=== PATIENT | male | born 1970 | race Caucasian/White ===

== ENCOUNTER 2017-06-30 09:02 | Emergency (ER) | payer BC ==
[~2017-06-30] VITALS: Ht 175.3 cm; Wt 85.0 kg
[~2017-06-30 09:02] MED LIST: ALL60 PO; OXYC-57 PO; TRIA3AER NAE
[2017-06-30 09:07] VITALS: BP 140/89; PULSE 99; TEMP 37.1; O2SAT 97; Ht 175.3 cm; Wt 85.0 kg
[2017-06-30] MEDS ORDERED: IBUPROFEN 600 MG TAB PO STA (09:19)
--- NOTE | 2017-06-30 09:21 | EMERGENCY ROOM VISIT NOTE ---
History Report prepared by Svetlana: Elmer Coello Under the Supervision of: Dr. Anderson Villatoro M.D. First contact with patient: 09:13 Chief Complaint: ANKLE PAIN Stated Complaint: SWOLLEN R ANKLE,AND ANKLE PAIN History of Present Illness The patient is a 46 year old male who presents to the Emergency Room with complaints of a sudden right ankle injury that occurred yesterday while [place]. He states that he turned the ankle when stepping in a hole, and he "felt a pop" when his ankle turned. The patient notes right ankle swelling, but he denies any new numbness. The patient states that he only has pain in the ankle, and denies any right leg pain. Source of History: patient Onset: Yesterday Position: ankle (right) Symptom Intensity: felt a pop Quality: other (turned ankle walking) Timing: other (sudden) Associated Symptoms: No numbness (no new) Note: Associated symptoms: Right ankle pain and swelling. Denies right leg pain. Review of Systems See HPI for pertinent positives & negatives. A total of 10 systems reviewed and were otherwise negative. Past Medical & Surgical Medical Problems: (1) HTN (hypertension) Surgical Problems: (1) History of back surgery Family History Diabetes mellitus Hypertension Kidney disease Social History Smoking Status: Never Smoker Smokeless Tobacco Use: No Drug Use: none Marital Status: Occupation Status: employed Current/Historical Medications Scheduled Fexofenadine Hcl (Ada *), 60 MG PO BID Oxycodone/Acetaminophen 5MG/325MG (Percocet 5MG/325MG), 1-2 TABLETS PO Q4HR PRN Triamcinolone Acet (Nasacort-Aq Nasal Inh), 2 SPRAYS ANA DAILY Scheduled PRN Oxycodone/Acetaminophen 5MG/325MG (Percocet 5MG/325MG), 1-2 TAB PO Q4H PRN for Pain Allergies Coded Allergies: Dog Dander (Verified Allergy, Mild, 09/29/08) Dust (Verified Allergy, Unknown, 07/04/05) Milk (Verified Allergy, Unknown, 07/04/05) Molds and Smuts (Verified Allergy, Unknown, 07/04/05) Starch (Verified Allergy, Unknown, DIETARY STARACH?, 06/17/09) Physical Exam Vital Signs Date Time Temp Pulse Resp B/P (MAP) Pulse Ox O2 Delivery O2 Flow Rate FiO2 2/18/18 09:07 37.1 99 18 140/89 97 Room Air Physical Exam GENERAL: Patient is a healthy-appearing well-nourished 46 year old male. HEAD: Normocephalic atraumatic EYES: Ocular movements intact pupils equal and react to light OROPHARYNX mucous membranes are moist no exudates present no erythema or edema present NECK: Supple no nuchal rigidity CHEST: Good equal expansion LUNGS: Clear and equal to auscultation CARDIAC: Normal S1 and S2 ABDOMEN: Soft nontender no guarding BACK: No CVA tenderness EXTREMITIES: Right ankle grossly swollen, neurovascularly intact. No pain at knee. NEURO: Patient is following commands and answering questions appropriately. Alert and oriented x3 Cranial Nerves 2-12 grossly intact Medical Decision & Procedures ER Provider Diagnostic Interpretation: X-ray results as stated below per interpretation by me and the radiologist: R ANKLE MIN 3 VIEWS ROUTINE CLINICAL HISTORY: Right ankle pain. COMPARISON: None FINDINGS: Alignment of the right ankle is anatomic. Talar dome is intact. There is no acute fracture. There is moderate lateral ankle soft tissue swelling. There is evidence for old syndesmotic injury. A 2.4 cm lucent lesion within the anterior calcaneus is noted with a narrow zone of transition. There is mild posterior calcaneal spurring. IMPRESSION: 1. No acute fracture or dislocation of the right ankle. 2. Moderate lateral ankle soft tissue swelling. 3. 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 Electronically signed by: Hesham Galdamez M.D. 06/30/2017 9:26 AM Dictated Date/Time: 06/30/2017 9:25 AM Medications Administered Medications (Trade) Dose Ordered Sig/Dinora Route Start Time Stop Time Status Last Admin Dose Admin Ibuprofen (Motrin Tab) 600 mg NOW STAT PO 06/30/17 09:19 06/30/17 09:21 DC 06/30/17 09:35 600 MG Oxycodone/ Acetaminophen (Percocet 5-325mg Tab) 2 tab NOW ONCE PO 06/30/17 09:30 06/30/17 09:31 DC 06/30/17 09:36 2 TAB ED Course 0916: Past medical records reviewed. The patient was evaluated in room B4B. A complete history and physical examination was performed. 0919: Ordered Motrin Tab 600 mg PO. 0930: Ordered Percocet 5-325mg Tab 2 tab PO. 0931: Upon reexamination the patient is resting. I discussed results and treatment plan with the patient. He verbalizes agreement and understanding. The patient is ready for discharge. Medical Decision Differential diagnosis: Etiologies such as fracture, dislocation, intra-abdominal, pneumothorax, intrathoracic , intracranial, neurologic, as well as other traumatic pathologies were entertained. This is a 46-year-old male who presents emergency department complaining of right ankle pain. The patient has no evidence of ankle fracture dislocation or subluxation on x-ray. 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 He was given ibuprofen in the emergency department along with crutches and an ankle splint. Patient was in agreement with the treatment plan. Medication Reconcilliation Current Medication List: was personally reviewed by me Blood Pressure Screening Patient's blood pressure: Elevated blood pressure Blood pressure disposition: Elevated BP felt to be situational Impression Primary Impression: Right ankle pain Scribe Attestation The scribe's documentation has been prepared under my direction and personally reviewed by me in its entirety. I confirm that the note above accurately reflects all work, treatment, procedures, and medical decision making performed by me. Departure Information Dispostion Home / Self-Care Prescriptions Oxycodone/Acetaminophen 5MG/325MG (PERCOCET 5MG/325MG) Tab 1-2 TAB PO Q4H Y for Pain, #14 TAB Prov: Anderson Villatoro MD 06/30/17 Referrals No Doctor, Assigned (PCP) Forms HOME CARE DOCUMENTATION FORM, IMPORTANT VISIT INFORMATION, School Instructions, Work Instructions Patient Instructions Ankle Sprain, ED Crutch Walking, [facility] Additional Instructions Need follow up with Ortho Doctor at home for continued ankle pain You received narcotic or benzodiazepene medication while in the emergency room today. This is an Need follow up with Ortho Doctor at home for continued ankle pain, Rt bone cyst. You received narcotic or benzodiazepene medication while in the emergency room today. This is an addictive medication that may cause drowziness as well as constipation. Do not drive, operate heavy machinery, or drink alcohol under the influence of this medication. Take 600 mg Ibuprofen every 6 hours Take Percocet for breakthrough pain You have been examined and treated today on an emergency basis only. This is not a substitute for, or an effort to provide, complete comprehensive medical care. It is impossible to recognize and treat all injuries or illnesses in a single emergency department visit. It is therefore important that you follow up closely with your PCP. Call as soon as possible for an appointment. Thank you for your time and consideration. I look forward to speaking with you again soon. Please don't hesitate to call us if you have any questions. Problem Qualifiers Primary Impression: Right ankle pain Chronicity: acute Qualified Codes: M25.571 - Pain in right ankle and joints of right foot
--- NOTE | 2017-06-30 09:27 | DIAGNOSTIC IMAGING REPORT ---
R ANKLE MIN 3 VIEWS ROUTINE CLINICAL HISTORY: Right ankle pain. COMPARISON: None FINDINGS: Alignment of the right ankle is anatomic. Talar dome is intact. There is no acute fracture. There is moderate lateral ankle soft tissue swelling. There is evidence for old syndesmotic injury. A 2.4 cm lucent lesion within the anterior calcaneus is noted with a narrow zone of transition. There is mild posterior calcaneal spurring. IMPRESSION: 1. No acute fracture or dislocation of the right ankle. 2. Moderate lateral ankle soft tissue swelling. 3. 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 Electronically signed by: Hesham Galdamez M.D. 06/30/2017 9:26 AM Dictated Date/Time: 06/30/2017 9:25 AM
[2017-06-30] MEDS ORDERED: OXYCODONE/ACETAMINOPHEN 5-325 TAB PO ONE (09:30)
[2017-06-30] MEDS ORDERED: OXYC-57 PO (09:39)
== END 2017-06-30 09:55 | disposition home or self-care (01) ==
LOC: C.EDB 09:07
DX: M25.571 Pain in right ankle and joints of right foot (principal); M85.671 Other cyst of bone, right ankle and foot; I10 Essential (primary) hypertension; Z91.048 Other nonmedicinal substance allergy status; Z91.011 Allergy to milk products; Z91.018 Allergy to other foods; Z83.3 Family history of diabetes mellitus; Z82.49 Family history of ischemic heart disease and other diseases of the circulatory system; Z84.1 Family history of disorders of kidney and ureter